=== PATIENT | female | born 1960 | race Caucasian/White ===

== ENCOUNTER 2020-01-19 06:56 | Emergency (ER) | payer BC ==
[~2020-01-19] VITALS: Ht 165.1 cm; Wt 70.3 kg
[2020-01-19 07:24] VITALS: Ht 165.1 cm; Wt 70.3 kg
[2020-01-19 09:00] VITALS: BP 120/68
== END 2020-01-19 09:00 | disposition home or self-care (01) ==
LOC: ED 06:56
DX: U07.1 COVID-19 (principal); Z90.89 Acquired absence of other organs; Z90.710 Acquired absence of both cervix and uterus; Z90.49 Acquired absence of other specified parts of digestive tract
CPT/HCPCS: Q0162